=== PATIENT | female | born 1950 | race Caucasian/White ===

== ENCOUNTER 2022-12-05 20:15 | Emergency (ER) | payer MEDICARE ==
[2022-12-05] MEDS ORDERED: Mineral Oil ENEMA ONE (20:59)
[2022-12-05] MEDS ORDERED: Senokot S 8.6-50 MG TAB PO SCH (21:30)
== END 2022-12-05 22:05 | disposition home or self-care (01) ==
LOC: MADERS 20:15
DX: K59.00 Constipation, unspecified (principal); E11.9 Type 2 diabetes mellitus without complications; J44.9 Chronic obstructive pulmonary disease, unspecified; E78.5 Hyperlipidemia, unspecified; I10 Essential (primary) hypertension
CPT/HCPCS: 99283

== ENCOUNTER 2023-11-12 14:53 | Inpatient (IN) | payer MEDICARE ==
[2023-11-12 15:23] VITALS: BMI 47.9
[2023-11-12] MEDS ORDERED: Albuterol 200 PUFF (6.7GM INHALER) INH PRN (17:28)
[2023-11-12] MEDS: HYDROcodone/Acetaminophen 10/325 mg Tablet PO PRN (17:55)
[2023-11-12] MEDS: Acetaminophen 325 MG TAB PO PRN (17:57)
[2023-11-12] MEDS: Acetaminophen 325 MG TAB PO SCH (18:31)
[2023-11-12] MEDS ORDERED: Bisacodyl 10 MG SUPP PR PRN (18:35)
[2023-11-12] MEDS ORDERED: Bisacodyl 10 MG SUPP PR SCH (22:00)
[2023-11-12] MEDS: metFORMIN 500 MG TAB PO SCH (22:03)
[2023-11-12] MEDS: Metoprolol Tartrate 50 MG TAB PO SCH (22:03)
[2023-11-12] MEDS: Rosuvastatin 10 MG TAB PO SCH (22:03)
[2023-11-12] MEDS: Amitriptyline HCl 25 MG TAB PO SCH (22:03)
[2023-11-12] MEDS: Gabapentin 300 MG CAP PO SCH (22:04)
[2023-11-12] MEDS: rOPINIRole HCl 0.25 MG TAB PO SCH (22:04)
[2023-11-12] MEDS: Aspirin 81 mg Enteric Coated Tablet PO SCH (22:05)
[2023-11-12] MEDS: Pantoprazole DR 40 MG TAB PO SCH (22:06)
[2023-11-12] MEDS: Senokot S 8.6-50 MG TAB PO SCH (22:06)
[2023-11-13] MEDS: Ferrous Gluconate 324 MG TAB PO SCH (09:35)
[2023-11-13] MEDS: Enoxaparin 40 MG (0.4 mL) SYRINGE SC SCH (09:35)
[2023-11-13] MEDS: Furosemide 20 MG TAB PO SCH (09:36)
[2023-11-13] MEDS: Hydrochlorothiazide 25 MG TAB PO SCH (09:37)
[2023-11-13] MEDS: Meloxicam 7.5 MG TAB PO SCH (09:37)
[2023-11-14 05:54] LABS: Hematocrit 26.1 % (36.0-47.0); Hemoglobin 7.9 g/dL (12.0-16.0); Mean Corpuscular HGB CONC 30.3 g/dL (32.0-36.0); Mean Corpuscular Volume 95.6 fl (78.0-98.0); Mean Platelet Volume 6.4 fL (7.4-10.4); Platelet Count 214 10x3/uL (130-400); RBC Distribution Width 14.4 % (11.5-14.5); Red Blood Cell (RBC) Count 2.73 mill/uL (4.20-5.40); White Blood Cell (WBC) Count 5.8 10x3/uL (4.8-10.8)
[2023-11-14 05:59] LABS: Anion Gap 14 mmol/L (10-20); BUN (Urea Nitrogen) 22 mg/dL (9.8-20.1); Calc. Creatinine Clearance 131 mL/min (70-130); Carbon Dioxide 21 mmol/L (23-31); Chloride 105 mmol/L (98-107); Estimated GFR 69; Glucose 120 mg/dL (83-110); Potassium 4.2 mmol/L (3.5-5.1); Sodium 136 mmol/L (136-145)
[2023-11-14] MEDS: Polyethylene Glycol 3350 17 GM Packet PO SCH (11:37)
[2023-11-14] MEDS: Lisinopril 10 MG TAB PO SCH (11:50)
[2023-11-15] MEDS: HYDROcodone/Acetaminophen 10/325 mg Tablet PO SCH (05:33)
[2023-11-15] MEDS: Polyethylene Glycol 3350 17 GM Packet PO SCH (09:28)
[2023-11-15] MEDS: Lisinopril 10 MG TAB PO SCH (09:30)
[2023-11-16 05:18] LABS: Hematocrit 26.1 % (36.0-47.0); Hemoglobin 8.2 g/dL (12.0-16.0); Mean Corpuscular HGB CONC 31.2 g/dL (32.0-36.0); Mean Corpuscular Hemoglobin 29.3 pg (27.0-31.0); Mean Corpuscular Volume 93.9 fl (78.0-98.0); Mean Platelet Volume 6.7 fL (7.4-10.4); Platelet Count 214 10x3/uL (130-400); RBC Distribution Width 14.3 % (11.5-14.5); Red Blood Cell (RBC) Count 2.78 mill/uL (4.20-5.40); White Blood Cell (WBC) Count 6.8 10x3/uL (4.8-10.8)
[2023-11-16 05:32] LABS: Anion Gap 14 mmol/L (10-20); BUN (Urea Nitrogen) 22 mg/dL (9.8-20.1); Calc. Creatinine Clearance 121 mL/min (70-130); Calcium 9.1 mg/dL (7.8-10.44); Carbon Dioxide 23 mmol/L (23-31); Chloride 104 mmol/L (98-107); Estimated GFR 63; Glucose 120 mg/dL (83-110); Potassium 3.9 mmol/L (3.5-5.1); Sodium 137 mmol/L (136-145)
[2023-11-16] MEDS: predniSONE 20 MG TAB PO SCH (08:19)
[2023-11-16] MEDS: Colchicine 0.6 MG TAB PO SCH ×2 (08:19→10:12)
[2023-11-18] MEDS: HYDROcodone/Acetaminophen 5/325 mg Tablet PO PRN (10:27)
[2023-11-19] MEDS: Melatonin 3 MG TAB PO SCH (20:56)
[2023-11-21] MEDS: Meloxicam 7.5 MG TAB PO SCH (09:49)
[2023-11-24] MEDS: Cholecalciferol 1,000 UNITS (25 MCG) TAB PO SCH (09:20)
[2023-11-26 08:17] VITALS: BMI 48.0
[2023-12-01] MEDS: Cholecalciferol (Vitamin D3) 5,000 UNITS CAPSULE PO SCH (08:35)
[2023-12-03 08:34] LABS: Hemoglobin 9.3 g/dL (12.0-16.0); Mean Corpuscular HGB CONC 31.7 g/dL (32.0-36.0); Mean Corpuscular Hemoglobin 29.3 pg (27.0-31.0); Mean Corpuscular Volume 92.3 fl (78.0-98.0); Mean Platelet Volume 8.1 fL (7.4-10.4); Platelet Count 107 10x3/uL (130-400); RBC Distribution Width 14.6 % (11.5-14.5); Red Blood Cell (RBC) Count 3.18 mill/uL (4.20-5.40); White Blood Cell (WBC) Count 3.9 10x3/uL (4.8-10.8)
[2023-12-03 08:39] VITALS: BP 160/76; TEMP 97.4
== END 2023-12-03 10:57 | disposition home health service (06) | DRG 560 ==
LOC: MADMS 14:53
PROVIDERS: ADMIT Family Medicine; ATTEND Family Medicine
DX: S92.151D Displaced avulsion fracture (chip fracture) of right talus, subsequent encounter for fracture with routine healing (principal); Z68.42 Body mass index [BMI] 45.0-49.9, adult; S82.832D Other fracture of upper and lower end of left fibula, subsequent encounter for closed fracture with routine healing; S76.111D Strain of right quadriceps muscle, fascia and tendon, subsequent encounter; S86.891D Other injury of other muscle(s) and tendon(s) at lower leg level, right leg, subsequent encounter; I10 Essential (primary) hypertension; R53.81 Other malaise; R26.89 Other abnormalities of gait and mobility; E11.9 Type 2 diabetes mellitus without complications; E78.5 Hyperlipidemia, unspecified; J45.909 Unspecified asthma, uncomplicated; I48.0 Paroxysmal atrial fibrillation; D64.89 Other specified anemias; E66.01 Morbid (severe) obesity due to excess calories; W19.XXXD Unspecified fall, subsequent encounter; Z88.1 Allergy status to other antibiotic agents; Z79.82 Long term (current) use of aspirin; Z79.899 Other long term (current) drug therapy; Z98.51 Tubal ligation status; Z98.890 Other specified postprocedural states
CPT/HCPCS: 36415; 36416; 80048; 85027; J1650; J7512

== ENCOUNTER 2023-12-16 14:43 | Inpatient (IN) | payer MEDICARE ==
[2023-12-16 15:39] VITALS: BMI 46.9
[2023-12-16] MEDS ORDERED: Albuterol 200 PUFF (6.7GM INHALER) INH PRN (17:09)
[2023-12-16] MEDS: Gabapentin 300 MG CAP PO SCH (21:11)
[2023-12-16] MEDS: HYDROcodone/Acetaminophen 10/325 mg Tablet PO SCH (21:13)
[2023-12-16] MEDS: rOPINIRole HCl 0.25 MG TAB PO SCH (21:14)
[2023-12-16] MEDS: metFORMIN 500 MG TAB PO SCH (21:14)
[2023-12-16] MEDS: Amitriptyline HCl 25 MG TAB PO SCH (21:15)
[2023-12-16] MEDS: Melatonin 3 MG TAB PO SCH (21:15)
[2023-12-16] MEDS: Pantoprazole DR 40 MG TAB PO SCH (21:15)
[2023-12-16] MEDS: Rosuvastatin 10 MG TAB PO SCH (21:15)
[2023-12-17] MEDS: traZODone HCl 50 MG TAB PO PRN (01:41)
[2023-12-17] MEDS: Cholecalciferol (Vitamin D3) 5,000 UNITS CAPSULE PO SCH (08:41)
[2023-12-17] MEDS: Enoxaparin 40 MG (0.4 mL) SYRINGE SC SCH (08:41)
[2023-12-17] MEDS: Aspirin 81 mg Enteric Coated Tablet PO SCH (08:42)
[2023-12-17] MEDS: HYDROcodone/Acetaminophen 10/325 mg Tablet PO PRN (08:42)
[2023-12-17] MEDS: Meloxicam 7.5 MG TAB PO SCH (08:43)
[2023-12-17] MEDS: Hydrochlorothiazide 25 MG TAB PO SCH (08:43)
[2023-12-17] MEDS: Lisinopril 20 MG TAB PO SCH (08:43)
[2023-12-17] MEDS: Fluticasone Propionate Nasal Spray 16 gm Bottle NASAL SCH (10:12)
[2023-12-17] MEDS: Acetaminophen 325 MG TAB PO PRN (14:10)
[2023-12-18] MEDS: HYDROcodone/Acetaminophen 10/325 mg Tablet PO SCH (05:36)
[2023-12-18] MEDS: Ferrous Gluconate 324 MG TAB PO SCH (08:44)
[2023-12-18] MEDS: Fluticasone Propionate Nasal Spray 16 gm Bottle NASAL SCH (08:44)
[2023-12-18] MEDS: HYDROcodone/Acetaminophen 10/325 mg Tablet PO PRN (12:19)
[2023-12-19] MEDS: Senokot S 8.6-50 MG TAB PO PRN (08:34)
[2023-12-20] MEDS: Polyethylene Glycol 3350 17 GM Packet PO PRN (13:43)
[2023-12-21 05:37] LABS: Hematocrit 30.7 % (36.0-47.0); Hemoglobin 9.7 g/dL (12.0-16.0); Mean Corpuscular HGB CONC 31.5 g/dL (32.0-36.0); Mean Corpuscular Hemoglobin 29.2 pg (27.0-31.0); Mean Corpuscular Volume 92.8 fl (78.0-98.0); Mean Platelet Volume 7.3 fL (7.4-10.4); Platelet Count 162 10x3/uL (130-400); RBC Distribution Width 13.7 % (11.5-14.5); Red Blood Cell (RBC) Count 3.31 mill/uL (4.20-5.40)
[2023-12-21 05:47] LABS: Anion Gap 17 mmol/L (10-20); BUN (Urea Nitrogen) 33 mg/dL (9.8-20.1); Calc. Creatinine Clearance 102 mL/min (70-130); Calcium 9.4 mg/dL (7.8-10.44); Carbon Dioxide 22 mmol/L (23-31); Chloride 101 mmol/L (98-107); Estimated GFR 53; Glucose 99 mg/dL (83-110); Potassium 4.9 mmol/L (3.5-5.1); Sodium 135 mmol/L (136-145)
[2023-12-29 06:47] VITALS: BMI 47.5
[2024-01-05] MEDS: Meloxicam 7.5 MG TAB PO SCH (08:18)
[2024-01-08 08:17] VITALS: BP 141/72; TEMP 97.6
== END 2024-01-08 10:22 | disposition home health service (06) | DRG 560 ==
LOC: MADMS 14:43
PROVIDERS: ADMIT Family Medicine; ATTEND Family Medicine
DX: S82.401D Unspecified fracture of shaft of right fibula, subsequent encounter for closed fracture with routine healing (principal); E87.1 Hypo-osmolality and hyponatremia; Z68.43 Body mass index [BMI] 50.0-59.9, adult; S82.001D Unspecified fracture of right patella, subsequent encounter for closed fracture with routine healing; S82.832D Other fracture of upper and lower end of left fibula, subsequent encounter for closed fracture with routine healing; R26.89 Other abnormalities of gait and mobility; D64.89 Other specified anemias; R53.81 Other malaise; W18.30XD Fall on same level, unspecified, subsequent encounter; Z88.1 Allergy status to other antibiotic agents; Z79.899 Other long term (current) drug therapy; E11.9 Type 2 diabetes mellitus without complications; J44.9 Chronic obstructive pulmonary disease, unspecified; I10 Essential (primary) hypertension; E78.5 Hyperlipidemia, unspecified; Z98.51 Tubal ligation status; E66.01 Morbid (severe) obesity due to excess calories
CPT/HCPCS: 36416; 80048; 85027; J1650